=== PATIENT | male | born 1940 | race Caucasian/White ===

== ENCOUNTER 2017-03-07 10:43 | Day surgery (SDC) | payer BC ==
[~2017-03-07 10:43] MED LIST: Acetaminophen TAB* 325 MG PO PRN; Buffered Lidocaine 1% SYRIN* 5 ML/SYR SYRINGE INTRADERM ONE
[2017-03-07] MEDS ORDERED: Midazolam* 1 MG/ML 2 ML VIAL (2 MG) ONE (12:13)
[2017-03-07 13:15] VITALS: BP 127/70
[2017-03-07] MEDS ORDERED: Povidone Iodine 5% OPTH* 30 ML BTL ONE (14:47)
[2017-03-07] MEDS ORDERED: acetaZOLAMIDE TAB* 250 MG ONE (14:47)
[2017-03-07] MEDS ORDERED: Flurbiprofen 0.03% OPTH.SOL* 2.5 ML BTL ONE (14:47)
[2017-03-07] MEDS ORDERED: Cyclopentolate 1% OPTH.SOL* 2 ML BTL ONE (14:47)
[2017-03-07] MEDS ORDERED: Lidocaine 1% MPF* 2 ML VIAL ONE (14:47)
[2017-03-07] MEDS ORDERED: Phenylephrine 2.5% OPTH.SOL* 2 ML BTL ONE (14:47)
[2017-03-07] MEDS ORDERED: Neomycin/Polymy/Dex OPHTH.OIN* 3.5 GM ONE (14:47)
[2017-03-07] MEDS ORDERED: Tetracaine 0.5% OPTH.SOL 4 ML* 1 DROP BTL ONE (14:47)
[2017-03-07] MEDS ORDERED: Tropicamide 1% OPTH.SOL* BTL ONE (14:47)
--- NOTE | 2017-03-08 08:53 | OP ---
DICTATION ENDS ABRUPTLY - FULLY REDICTATED DATE OF OPERATION: 03/07/17 - [facility] DATE OF : 40 SURGEON: Rene Hamilton MD ANESTHESIOLOGIST: Xander Jordan MD ANESTHESIA: Monitored anesthesia care. PRE-OP DIAGNOSIS: Cataract, left eye. POST-OP DIAGNOSIS: Cataract, left eye, with floppy iris syndrome. OPERATIVE PROCEDURE: Cataract extraction, left eye. IMPLANTS: SN60WF 20.0 diopter lens, left eye. COMPLICATIONS: None. DESCRIPTION OF PROCEDURE: The patient was given phenylephrine 2.5% and cyclopentolate 1% eye drops in the preoperative area in the operative eye. The patient was brought to the operating room, where a time-out was taken to identify the correct patient, site, and side of surgery. The patient's left eye was prepped and draped in the usual sterile fashion with 5% Betadine. A second time-out was taken to verify the correct patient, site, and side of surgery and correct lens selection. A lid speculum was placed to the left eye. A 1-mm paracentesis blade was used to make a clear corneal incision in the inferotemporal position. Preservative-free 1% lidocaine was injected into the anterior chamber. DisCoVisc was then injected in the anterior chamber. A 2.75- mm keratome blade was used to make a triplanar incision at the superotemporal position. A Malyugin ring was then inserted for mechanical pupillary dilation due to inadequate pupil dilatation and floppy iris syndrome. A cystotome was used to initiate a capsulorrhexis, which was completed with Utrata forceps in a continuous DICTATION ENDS ABRUPTLY [id number]/[facility] #: [id number] [facility]
--- NOTE | 2017-03-08 09:02 | OP ---
DATE OF OPERATION: 03/07/17 - [facility] DATE OF : 40 SURGEON: Rene Hmailton MD. ANESTHESIOLOGIST: Xander Jordan MD ANESTHESIA: Monitored anesthesia care. PRE-OP DIAGNOSIS: Cataract, left eye. POST-OP DIAGNOSIS: Cataract, left eye, with floppy iris syndrome. PROCEDURE PERFORMED: Cataract extraction, left eye. IMPLANTS: SN60WF 20.0 diopter lens, left eye. COMPLICATIONS: None. DESCRIPTION OF PROCEDURE: The patient was given phenylephrine 2.5% and cyclopentolate 1% eye drops to the operative eye in the preoperative area. The patient was brought to the operating room where a time-out was taken to identify the correct patient, site, and side of the surgery. The patient's left eye was prepped and draped in the usual sterile fashion with 5% Betadine. A second time- out was taken to verify the correct patient, site, and side of surgery, and correct lens selection. A lid speculum was placed to the left eye. A 1-mm paracentesis blade was used to make a clear corneal incision in the inferotemporal position. Preservative free 1% lidocaine was injected into the anterior chamber. DisCoVisc was injected into the anterior chamber. A 2.75 mm keratome blade was used to make a triplanar incision at the superotemporal position. A Malyugin ring was then inserted for mechanical pupillary dilation due to inadequate pupil dilation and floppy iris syndrome. A cystotome was used to initiate a capsulorrhexis, which was completed with Utrata forceps in a continuous and curvilinear manner. Hydrodissection of the lens was performed with BSS on a cannula. The lens could be spun in a capsular bag. The phacoemulsification handpiece was used with a divide and conquer technique to remove the nucleus in its entirety, with 36.19 CDE. The I/A handpiece was then used to remove the residual cortical lens material. DisCoVisc was then injected to inflate the capsular bag. The planned SN60WF 20.0 diopter lens was then injected into the capsular bag. The Malyugin ring was then removed from the anterior chamber with a [place] technique. The residual DisCoVisc was removed from the eye with the I/A handpiece. The corneal incisions were hydrated and no leaks occurred at physiologic pressure around 20 mmHg per palpation. The lid speculum was removed and the drapes removed. Maxitrol ointment was placed on the surface of the operative eye. Adhesive patch and shield was placed on the operative eye. The patient was taken to the postoperative area in a stable condition. [id number]/[facility] #: [id number] MTDD
== END 2017-03-07 13:20 | disposition home or self-care (01) ==
LOC: OREAST 10:43
PROVIDERS: ATTEND Student in an Organized Health Care Education/Training Program
DX: H25.12 Age-related nuclear cataract, left eye (principal); H21.81 Floppy iris syndrome; J44.9 Chronic obstructive pulmonary disease, unspecified; F17.210 Nicotine dependence, cigarettes, uncomplicated
CPT/HCPCS: A9270-GY; J2250; V2632